=== PATIENT | male | born 1960 | race African-American/Black ===

== ENCOUNTER 2023-08-03 14:47 | Inpatient (IN) | payer MEDICAID ==
[~2023-08-03] VITALS: Ht 175.3 cm; Wt 71.7 kg
[2023-08-03 16:19] LABS: BASOPHILS % (AUTO) 0.3 % (0-1); EOSINOPHILS # (AUTO) 0.1 X10'3 (0-0.9); HEMATOCRIT 34.9 % (42.0-52.0); HEMOGLOBIN 11.7 g/dl (14.0-17.9); LYMPHOCYTES # (AUTO) 0.7 X10'3 (1.1-4.8); LYMPHOCYTES % (AUTO) 10.7 % (21-51); MEAN CORPUSCULAR HEMOGLOBIN 32.6 PG (27.0-31.0); MEAN CORPUSCULAR HGB CONC 33.6 g/dL (33.0-36.5); MEAN PLATELET VOLUME 7.2 FL (7.4-10.4); MONOCYTES # (AUTO) 0.5 X10'3 (0-0.9); MONOCYTES % (AUTO) 8.1 % (2-12); NEUTROPHILS % (AUTO) 79.9 % (42-75); PLATELET COUNT 244 X10'3 (140-440); WHITE BLOOD COUNT 6.3 X10'3 (4.5-11.0)
[2023-08-03 16:34] LABS: ALANINE AMINOTRANSFERASE 65 U/L (12-78); ALBUMIN 3.7 G/DL (3.4-5.0); ALBUMIN/GLOBULIN RATIO 0.8 (1.1-1.5); ALKALINE PHOSPHATASE 102 IU/L (46-116); ANION GAP 10 (8-16); ASPARTATE AMINO TRANSFERASE 73 U/L (10-37); BILIRUBIN,TOTAL 0.4 MG/DL (0.1-1.0); BLOOD UREA NITROGEN 23 MG/DL (7-18); BUN/CREATININE RATIO 31.1 (10.0-20.0); CALCIUM 8.9 MG/DL (8.5-10.1); CHLORIDE 102 MMOL/L (99-107); CREATININE 0.74 MG/DL (0.60-1.10); ETHANOL < 10 MG/DL (<10); GLUCOSE 160 MG/DL (70-104); POTASSIUM 3.8 MMOL/L (3.5-5.1); SODIUM 137 MMOL/L (135-145); TOTAL CARBON DIOXIDE 24.6 MMOL/L (24-32); TOTAL PROTEIN 8.4 G/DL (6.4-8.2); eCRCL 102 ML/MIN; eGFR > 90 ML/MIN
[2023-08-03 18:54] LABS: URINE AMPHETAMINE SCREEN NEGATIVE (Neg); URINE BARBITUATE SCREEN NEGATIVE (Neg); URINE BENZODIAZEPINES SCREEN NEGATIVE (Neg); URINE CANNABINOID SCREEN NEGATIVE (Neg); URINE COCAINE SCREEN NEGATIVE (Neg); URINE METHADONE SCREEN NEGATIVE (Neg); URINE OPIATE SCREEN NEGATIVE (Neg); URINE PHENCYCLIDINE SCREEN NEGATIVE (Neg)
[2023-08-03] MEDS ORDERED: NO HOME MEDS (18:58)
[2023-08-03 19:05] LABS: BILIRUBIN,URINE NEGATIVE (Neg); CLARITY,URINE CLEAR (Clear); COLOR,URINE YELLOW (Yellow); GLUCOSE, URINE NEGATIVE (Neg); KETONES,URINE NEGATIVE (Neg); LEUKOCYTE ESTERASE ,URINE NEGATIVE (Neg); NITRITES, URINE NEGATIVE (Neg); OCCULT BLOOD,URINE NEGATIVE (Neg); PROTEIN,URINE NEGATIVE (Neg)
[2023-08-03 19:07] LABS: UA COLLECTION TYPE VOIDED
[2023-08-04] MEDS ORDERED: mag hydrox/Alum hydrox/simeth 30ml oral suspension PO PRN (21:35)
[2023-08-04] MEDS ORDERED: loperamide 2mg capsule PO PRN (21:35)
[2023-08-04] MEDS ORDERED: magnesium hydroxide 30ml (MOM) UD suspension PO PRN (21:35)
[2023-08-04] MEDS ORDERED: acetaminophen 325mg tablet PO PRN ×2 (21:35)
[2023-08-04 22:08] VITALS: RESP 14; O2SAT 97
[2023-08-04 22:21] VITALS: BP 94/53; PULSE 66; RESP 14; TEMP 98.3; O2SAT 97
[2023-08-05 07:00] VITALS: RESP 16; O2SAT 99
[2023-08-05 07:58] VITALS: BP 107/75; PULSE 81; RESP 16; TEMP 98.5; O2SAT 99
[2023-08-05 08:30] LABS: CHOL/HDL RATIO 2.3 (0.00-4.99); CHOLESTEROL 249 MG/DL (0-200); HDL CHOLESTEROL 107 MG/DL (35-60); LDL CHOLESTEROL 112 MG/DL (50-100); TRIGLYCERIDES 44 MG/DL (20-135)
[2023-08-05 09:05] LABS: HEMOGLOBIN A1C 5.2 % (4.5-6.2)
[2023-08-05] MEDS ORDERED: pneumococcal 23-VAL P-sac vacc 25 mcg/0.5ml vial IMVAC ONE (10:00)
[2023-08-05] MEDS ORDERED: FLU VACC QS2023-24(6MOS UP)/PF 60 MCG/0.5 ML SYRINGE IM ONE (10:00)
[2023-08-05 19:00] VITALS: RESP 18; O2SAT 99
[2023-08-05 20:00] VITALS: BP 109/57; PULSE 73; RESP 18; TEMP 98.3; O2SAT 99
[2023-08-06 07:00] VITALS: RESP 16; O2SAT 100
[2023-08-06 08:00] VITALS: BP 99/55; PULSE 67; RESP 16; TEMP 98.7; O2SAT 100
[2023-08-06 19:48] VITALS: BP 97/78; PULSE 76; RESP 16; TEMP 98.1; O2SAT 100
[2023-08-07 07:00] VITALS: RESP 16; O2SAT 100
[2023-08-07 08:00] VITALS: BP 102/58; PULSE 68; RESP 16; TEMP 97.7; O2SAT 99
== END 2023-08-07 12:30 | disposition home or self-care (01) | DRG 757 ==
LOC: ER 14:47 → ADULT MH 08-04 17:10
PROVIDERS: ADMIT Psychiatry & Neurology Psychiatry; ATTEND Psychiatry & Neurology Psychiatry
PROC: GZHZZZZ Group Psychotherapy (ICD-10-PCS; principal; 2023-08-06)
PROC: GZ51ZZZ Individual Psychotherapy, Behavioral (ICD-10-PCS; 2023-08-06)
DX: F84.0 Autistic disorder (principal); R62.50 Unspecified lack of expected normal physiological development in childhood; Z20.822 Contact with and (suspected) exposure to COVID-19; Z56.0 Unemployment, unspecified; Z59.00 Homelessness unspecified; Z63.4 Disappearance and death of family member
CPT/HCPCS: 36415; 80053; 80061; 80305; 80320; 81003; 83036; 83721; 85025; 87081; 87811; 99285